=== PATIENT | male | born 1960 | race Caucasian/White ===

== ENCOUNTER 2018-01-23 13:05 | Inpatient (IN) | payer OTHER ==
[2018-01-23] VITALS (7 sets, daily range): BP systolic 136–167; BP diastolic 74–89
[~2018-01-23] VITALS: Ht 185.4 cm; Wt 94.3 kg
[~2018-01-23 13:05] MED LIST: NOHOMEMEDS
[2018-01-23 14:37] LABS: ALBUMIN 3.9 g/dL (3.2-4.8)
[2018-01-23 14:38] LABS: CHLORIDE 107 mEq/L (99-109); POTASSIUM 4.3 mEq/L (3.7-5.4); SODIUM 143 mEq/L (136-147)
[2018-01-23 14:40] LABS: GLUCOSE 73 mg/dL (70-99); TOTAL PROTEIN 6.6 g/dL (6.4-8.3)
[2018-01-23 14:42] LABS: TOTAL BILIRUBIN 0.9 mg/dL (0.0-1.0)
[2018-01-23 14:46] LABS: ALT (GPT) 7 IU/L (3-49); HEMATOCRIT 15.1 % (38.0-50.0); HEMOGLOBIN 3.4 G/DL (12.5-16.6); MCH 12.4 PG (29.0-34.0); MCHC 22.5 G/DL (30.0-36.0); MCV 55.1 FL (86-99); NRBC (%) 1.2 /100 WBC (0-0); PLATELET COUNT 266 K/uL (156-360); RBC DIS.WIDTH-SD 43.5 % (39-53); RED BLOOD COUNT 2.74 M/uL (4.00-5.50); WHITE BLOOD COUNT 3.2 K/uL (4.1-10.2)
[2018-01-23 14:50] LABS: TROP-I INTERPRETATION NEGATIVE; TROPONIN-I < 0.01 ng/mL (0.0-0.30)
[2018-01-23 14:51] LABS: INTER. NORMALIZED RATIO 1.2
[2018-01-23 14:54] LABS: PTT 32.4 SEC (25-37)
[2018-01-23 15:02] LABS: ALKALINE PHOSPHATASE 69 IU/L (3-129); AST (GOT) 9 IU/L (2-34); CREATININE 1.7 mg/dL (0.6-1.3); GFR ESTIMATE (CALCULATED) 44 mL/min/ (58.99-99999); UREA NITROGEN (BUN) 17 mg/dL (9-23)
[2018-01-23 16:05] LABS: ABS NEUTROPHIL COUNT 1.6; ANISOCYTOSIS 2+; BASOPHILS 2.7 %; EOSINOPHIL ABS CT 0.2; EOSINOPHILS 6.3 % (0-5.0); HYPOCHROMASIA 3+; LYMPHOCYTES 33.2 % (15.0-45.0); MICROCYTOSIS 1+; MONOCYTES 7.2 % (0-9.0); MYELOCYTES 0.4 %; NUCLEATED RBC'S 1.3; OVALOCYTES 1+; PLAT.SUFFICIENCY ADEQUATE; POIKILOCYTOSIS 2+; SEG.NEUTROPHILS 50.2 % (46.0-76.0); TOXIC GRANULATION 1+
[2018-01-23 16:38] LABS: APPEARANCE SL.HAZY ((CLEAR)); BILIRUBIN NEGATIVE; BLOOD NEGATIVE; COLOR YELLOW ((YELLOW)); GLUCOSE (STRIP) NEGATIVE; KETONES NEGATIVE; LEUKOCYTES LARGE; NITRITE NEGATIVE; PROTEIN (STRIP) 30; SPECIFIC GRAVITY 1.012 (1.000-1.030); UROBILINOGEN 0.2 MG/DL (0.2-1.0)
[2018-01-23 16:57] LABS: BACTERIA 1+ /HPF; EPITHELIAL CELLS NONE SEEN /HPF; MUCUS NONE SEEN /LPF; RED BLOOD CELLS 0-5 /HPF (0-5); UCUL ADDED? YES; WHITE BLOOD CELLS TNTC /HPF (0-5)
[2018-01-23] MEDS ORDERED: ZANTAC150 MG PO (18:54)
[2018-01-23] MEDS ORDERED: PRILOSEC20 MG PO (18:55)
[2018-01-23] MEDS ORDERED: DENTAGEL56 GM DT (18:55)
[2018-01-23] MEDS ORDERED: ALKA-SELTZER PL25 MG PO (18:56)
[2018-01-23] MEDS ORDERED: WOMEN'S LAXATIVE5 M1 PO (18:57)
[2018-01-23 22:21] LABS: LACTATE DEHYDROGENASE 116 IU/L (20-246)
[2018-01-23 22:46] LABS: FOLIC ACID (FOLATE) 21.4 NG/ML (5.0-22.0)
[2018-01-23 22:54] LABS: ABSOLUTE RETICULOCYTE CT. 0.01 M/uL (0.02-0.08); IMM.RETIC FRACTION 46.1 % (3-19); RETICULOCYTE COUNT 0.2 % (0.5-1.8)
[2018-01-24] VITALS (17 sets, daily range): BP systolic 147–182; BP diastolic 82–101
[2018-01-24 00:14] LABS: IRON < 10 MCG/DL (35-150); TRANSFERRIN (TIBC) 337.8 mg/dL (215-380); TRANSFERRIN SATUR. 3 % (20-55)
[2018-01-24 08:32] LABS: HEMATOCRIT 22.5 % (38.0-50.0); HEMOGLOBIN 6.3 G/DL (12.5-16.6); MCH 17.9 PG (29.0-34.0); MCV 63.9 FL (86-99); NRBC (%) 1.2 /100 WBC (0-0); PLATELET COUNT 228 K/uL (156-360); RBC DIS.WIDTH-CV 30.3 % (11.8-14.6); RBC DIS.WIDTH-SD 65.5 % (39-53); RED BLOOD COUNT 3.52 M/uL (4.00-5.50); WHITE BLOOD COUNT 4.1 K/uL (4.1-10.2)
[2018-01-24 08:46] LABS: CHLORIDE 108 MEQ/L (99-109); CREATININE 1.5 MG/DL (0.6-1.3); GFR ESTIMATE (CALCULATED) 51 mL/min/ (58.99-99999); GLUCOSE 87 mg/dL (70-99); POTASSIUM 4.4 MEQ/L (3.7-5.4); SODIUM 140 MEQ/L (136-147); UREA NITROGEN (BUN) 12 mg/dL (9-23)
[2018-01-24 09:07] LABS: FERRITIN 2 NG/ML (22-322)
[2018-01-24 11:12] LABS: ABS NEUTROPHIL COUNT 2.6; ANISOCYTOSIS 2+; BASOPHILS 1.7 %; EOSINOPHIL ABS CT 0.1; EOSINOPHILS 1.7 % (0-5.0); HELMET CELLS 1+; HYPOCHROMASIA 3+; LYMPHOCYTES 23.5 % (15.0-45.0); METAMYELOCYTES 0.9 %; MICROCYTOSIS 2+; PLAT.SUFFICIENCY ADEQUATE; POIKILOCYTOSIS 2+; POLYCHROMASIA 2+; SEG.NEUTROPHILS 65.2 % (46.0-76.0); TARGET CELLS 2+
[2018-01-24 18:01] LABS: HEMATOCRIT 25.8 % (38.0-50.0); HEMOGLOBIN 7.4 G/DL (12.5-16.6); MCV 65.5 FL (86-99)
[2018-01-25 00:32] VITALS: BP 173/98
[2018-01-25 01:29] VITALS: BP 152/79
[2018-01-25 03:37] VITALS: BP 151/79
[2018-01-25 06:17] LABS: CHLORIDE 108 MEQ/L (99-109); CREATININE 1.4 MG/DL (0.6-1.3); GFR ESTIMATE (CALCULATED) 55 mL/min/ (58.99-99999); GLUCOSE 87 mg/dL (70-99); POTASSIUM 4.6 MEQ/L (3.7-5.4); SODIUM 140 MEQ/L (136-147); UREA NITROGEN (BUN) 12 mg/dL (9-23)
[2018-01-25 06:26] LABS: HEMATOCRIT 29.7 % (38.0-50.0); HEMOGLOBIN 8.7 G/DL (12.5-16.6); MCHC 29.3 G/DL (30.0-36.0); MCV 68.1 FL (86-99); NRBC (%) 1.4 /100 WBC (0-0); PLATELET COUNT 231 K/uL (156-360); WHITE BLOOD COUNT 5.1 K/uL (4.1-10.2)
[2018-01-25 06:29] LABS: RED BLOOD COUNT 4.36 M/uL (4.00-5.50)
[2018-01-25 07:19] VITALS: BP 166/87
[2018-01-25 16:15] VITALS: BP 150/99
[2018-01-25 23:53] VITALS: BP 155/108
[2018-01-26 06:04] LABS: HEMATOCRIT 33.8 % (38.0-50.0); HEMOGLOBIN 9.7 G/DL (12.5-16.6); MCHC 28.7 G/DL (30.0-36.0); MCV 69.8 FL (86-99); NRBC (%) 0.8 /100 WBC (0-0); PLATELET COUNT 230 K/uL (156-360); RED BLOOD COUNT 4.84 M/uL (4.00-5.50); WHITE BLOOD COUNT 6.2 K/uL (4.1-10.2)
[2018-01-26 06:12] LABS: CHLORIDE 106 MEQ/L (99-109); CREATININE 1.6 MG/DL (0.6-1.3); GFR ESTIMATE (CALCULATED) 47 mL/min/ (58.99-99999); GLUCOSE 93 mg/dL (70-99); POTASSIUM 4.5 MEQ/L (3.7-5.4); SODIUM 142 MEQ/L (136-147); UREA NITROGEN (BUN) 11 mg/dL (9-23)
[2018-01-26 07:16] VITALS: BP 143/87
[2018-01-26 16:40] VITALS: BP 145/88
[2018-01-26 19:48] VITALS: BP 137/99
[2018-01-27 00:15] VITALS: BP 156/94
[2018-01-27 05:54] LABS: HEMATOCRIT 35.8 % (38.0-50.0); HEMOGLOBIN 10.1 G/DL (12.5-16.6); MCH 20.2 PG (29.0-34.0); MCHC 28.2 G/DL (30.0-36.0); MCV 71.7 FL (86-99); NRBC (%) 0.3 /100 WBC (0-0); PLATELET COUNT 263 K/uL (156-360); RED BLOOD COUNT 4.99 M/uL (4.00-5.50); WHITE BLOOD COUNT 6.2 K/uL (4.1-10.2)
[2018-01-27 06:00] LABS: CHLORIDE 106 MEQ/L (99-109); CREATININE 1.4 MG/DL (0.6-1.3); GFR ESTIMATE (CALCULATED) 55 mL/min/ (58.99-99999); GLUCOSE 97 mg/dL (70-99); POTASSIUM 4.5 MEQ/L (3.7-5.4); SODIUM 140 MEQ/L (136-147); UREA NITROGEN (BUN) 16 mg/dL (9-23)
[2018-01-27 07:47] VITALS: BP 143/84
[2018-01-27] MEDS ORDERED: TAMSULOSIN HCL0.4 MG PO (08:49)
[2018-01-27] MEDS ORDERED: ENDOCET 5-3251 EACH PO (08:53)
[2018-01-27] MEDS ORDERED: VITRON-C TABLE1 EACH PO (08:53)
== END 2018-01-27 11:53 | disposition home or self-care (01) | DRG 812 ==
LOC: EME 13:05 → EDOF 20:43 → 5SOUTH 20:43 → ENRESERV 20:45 → 5SOUTH 22:14
PROVIDERS: Emergency Medicine; Family Medicine; Hospitalist; Internal Medicine
PROC: 30233N1 Transfusion of Nonautologous Red Blood Cells into Peripheral Vein, Percutaneous Approach (ICD-10-PCS; principal; 2018-01-23)
DX: D50.9 Iron deficiency anemia, unspecified (principal); N17.9 Acute kidney failure, unspecified; N13.6 Pyonephrosis; N32.0 Bladder-neck obstruction; R31.0 Gross hematuria; G91.2 (Idiopathic) normal pressure hydrocephalus; G93.89 Other specified disorders of brain; K21.9 Gastro-esophageal reflux disease without esophagitis; K59.00 Constipation, unspecified; R01.1 Cardiac murmur, unspecified; R05 Cough; R06.02 Shortness of breath; R41.82 Altered mental status, unspecified; R42 Dizziness and giddiness; R53.1 Weakness; R53.83 Other fatigue
CPT/HCPCS: 36415; 70450; 71046; 71260; 74177; 80048; 80053; 80061; 81003; 82140; 82607; 82728; 82746; 83010 90; 83021 90; 83036; 83540; 83605; 83615; 84153; 84443; 84466; 84484; 85007; 85014; 85014 90; 85018; 85018 90; 85025; 85025 91; 85027; 85041 90; 85046; 85060; 85610; 85730; 86038; 86850; 86900; 86901; 86920; 87040; 87086; 93005; 99281; 99285; C9113; J0696; J1756; J3010; J3420; J7030; J7050; P9016